=== PATIENT | male | born 1955 | race Caucasian/White ===

== ENCOUNTER → 2017-03-07 | Outpatient (CLI) | payer OTHER ==
[~2017-03-07] VITALS: Ht 193 cm; Wt 117.0 kg
[~2017-03-07] MED LIST: ANTIVERT25 MG PO; ATORVASTATIN CA20 MG PO; AUGMENTIN875 MG PO; AVINZA30 MG PO; CALCIUM CITRAT1 EAC8 PO; CALCIUM CITRAT200 MG PO; CINNAMON500 MG PO; CO Q-10100 MG PO; COQ-10100 MG PO; CYCLOBENZAPRINE10 MG PO; CYMBALTA60 MG PO; DOCUSATE CALCI240 MG PO; Docusate Calcium PO; ENDOCET 7.5-321 EACH PO; EPITOL200 MG PO; FISH OIL 1,0001 EAC7 PO; GABAPENTIN300 MG PO; GABPENTIN PO; GLUCOPHAGE1000 MG PO; HYDROCODON-ACE1 EAC5 PO; HYDROCODON-ACE1 EAC7 PO; HYDROCODON-ACE1 EAC9 PO; INSULIN PUMP SCCONT; INSULIN PUMP SQ; KEFLEX500 MG PO; LANTUS 10100 UNITS/ SC; LEVEMIR100 UNIT/2 SC; LIPITOR40 MG PO; LISINOPRIL20 MG PO; LO-DOSE ASPIRIN81 M1 PO; LORATADINE10 M2 PO; Loratadine PO; MAGNESIUM OXID200 MG PO; MAGNESIUM100 MG PO; MELOXICAM15 MG PO; METFORMIN HCL1000 MG PO; METFORMIN HCL500 MG PO; MIRALAX255 GM PO; MORPHINE SULFAT15 M1 PO; MORPHINE SULFAT30 M5 PO; MYRBETRIQ50 MG PO; Magnesium PO; NAPROSYN500 MG PO; NOVOLOG 10100 UNITS/ SC; OXYCODONE-ACET1 EACH PO; ROPINIROLE HCL1 MG PO; ROPINIROLE HCL2 MG PO; SENNA S TABLET1 EACH PO; TAMSULOSIN HCL0.4 MG PO; TRICOR145 MG PO; TRULICITY0.75 MG/0. SC; UNASYN3 GM IM; VITAMIN D35000 UNIT PO; VITAMIN K100 MCG PO; ZANAFLEX6 MG; ZOFRAN4 MG PO; [UNRECOGNIZED DRUG - REMARK] TP
[2017-03-07 08:56] LABS: POINT-OF-CARE METER ID UU14107333
[2017-03-07 09:53] LABS: POINT-OF-CARE METER ID UU13113819
== END | disposition home or self-care (01) ==
LOC: AMB 08:15
PROVIDERS: Internal Medicine
DX: K29.70 Gastritis, unspecified, without bleeding (principal); K25.9 Gastric ulcer, unspecified as acute or chronic, without hemorrhage or perforation; I12.9 Hypertensive chronic kidney disease with stage 1 through stage 4 chronic kidney disease, or unspecified chronic kidney disease; E11.22 Type 2 diabetes mellitus with diabetic chronic kidney disease; N18.3 Chronic kidney disease, stage 3 (moderate); E11.40 Type 2 diabetes mellitus with diabetic neuropathy, unspecified; E11.65 Type 2 diabetes mellitus with hyperglycemia; E78.1 Pure hyperglyceridemia; Z96.41 Presence of insulin pump (external) (internal); N40.1 Benign prostatic hyperplasia with lower urinary tract symptoms; R35.0 Frequency of micturition; Z86.14 Personal history of Methicillin resistant Staphylococcus aureus infection; G47.30 Sleep apnea, unspecified; G25.81 Restless legs syndrome; Z80.0 Family history of malignant neoplasm of digestive organs; Z87.891 Personal history of nicotine dependence; Z79.82 Long term (current) use of aspirin; Z79.4 Long term (current) use of insulin; Z82.49 Family history of ischemic heart disease and other diseases of the circulatory system; Z82.5 Family history of asthma and other chronic lower respiratory diseases; Z81.1 Family history of alcohol abuse and dependence
CPT/HCPCS: 82948; 88305; 88342 TC